=== PATIENT | female | born 1935 | race Caucasian/White ===

== ENCOUNTER → 2017-02-08 | Outpatient (CLI) | payer MEDICARE, OTHER ==
[~2017-02-08] MED LIST: ACET-2723 PO; ALBU8.5H INH; ALPR-240 PO; ASCO-324 PO; BUME2TAB2 PO; FISH1CAP29 PO; LACT1CAP80 PO; POLY30DR BOTH EYES; POTA10TA83 PO; SERT50TA12 PO; VERA180T6 PO; VERA180T8 PO; WARF3TAB24 PO; WARF3TAB6 PO; [UNRECOGNIZED DRUG - CODE] PO
--- NOTE | 2017-02-08 11:27 | DI ---
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 FINDINGS: The heart size is normal. The mediastinal configuration is unremarkable. Right-sided dual-lead pacemaker in stable position. There are no consolidating opacities. There is stable blunting of the right costophrenic angle likely reflecting pleural thickening/scarring. There is no evidence for a pneumothorax. The osseous structures are within normal limits. IMPRESSION: Stable chest without evidence for acute cardiopulmonary abnormality. .
== END ==
LOC: IMA 11:00
PROVIDERS: ATTEND Internal Medicine Medical Oncology
DX: C50.311 Malignant neoplasm of lower-inner quadrant of right female breast (principal); Z95.0 Presence of cardiac pacemaker

== ENCOUNTER → 2017-02-10 | Outpatient (CLI) | payer MEDICARE, OTHER | LOC: WC.BC 08:35 | DX: Z12.31 Encounter for screening mammogram for malignant neoplasm of breast (principal); C50.912 Malignant neoplasm of unspecified site of left female breast; N64.59 Other signs and symptoms in breast; N64.89 Other specified disorders of breast | CPT/HCPCS: 77063; G0202 ==

== ENCOUNTER 2017-02-18 06:15 | Day surgery (SDC) | payer MEDICARE, OTHER ==
[~2017-02-18] VITALS: Ht 167.6 cm; Wt 60.7 kg
[~2017-02-18 06:15] MED LIST changes: -ACET-2723 PO; +ALBU18HF2 ORAL INH; -ALBU8.5H INH; +BUDE3CAP4 PO; -LACT1CAP80 PO; +RANI150T7 PO
--- OUTSIDE RECORDS SUMMARY | 2017-02-18 06:18 | XMS REPORT | Referral Summary ---
Author Author [facility] Organization [facility] Address Unknown Phone Unavailable Care Team Providers Care [employer] Name Role Phone Ion Bergeron Primary Care Physician [phone] Encounter [facility] [id number] Date(s): 01/12/16 - 01/12/16 [facility] [address] [place] [address] GITA Ramirez [id number] [facility] Discharge Diagnosis: Eustachian tube dysfunction Discharge Diagnosis: Bilateral sensorineural hearing loss Discharge Disposition: 01-Home or Self Care Attending Physician: Carmen Prince Admitting Physician: Carmen Prince Vital Signs No data available for this section Problem List No data available for this section Allergies, Adverse Reactions, Alerts Substance Reaction Severity Status nitrofurantoin STOMACHACHE Active tetracycline uNspecfied Active Medications No data available for this section Results No data available for this section Immunizations No data available for this section Procedures No data available for this section Social History No data available for this section Assessment and Plan No data available for this section
--- OUTSIDE RECORDS SUMMARY | 2017-02-18 06:18 | XMS REPORT | Continuity of Care Document ---
Author Author [facility] Organization [facility] Address Unknown Phone Unavailable Care Team Providers Care [employer] Firer Name Role Phone Primary Care Physician Unavailable Source Comments Some departments are not documenting in the electronic medical record. If you do not see the information that you expected, contact Release of Information in the Health Information Management department at [phone] for further assistance in locating additional records.[facility] Active Allergies and Adverse Reactions Not on File Current Medications Not on file Active Problems Not on file Social History Tobacco Use Types Packs/Day Years Used Date Never Assessed Plan of Care Health Maintenance Due Date Last Done Comments Physical (Comprehensive) 1940 Exam Pertussis Vaccine 1944 Tetanus Vaccine 1950 Shingles Vaccine 1993 Osteoporosis Screening 1998 Prevnar/Pneumovax (#1) 1998 Influenza Vaccine 06/03/2017 Results from Last 3 Months Not on file
--- OUTSIDE RECORDS SUMMARY | 2017-02-18 06:18 | XMS REPORT | Continuity of Care Document ---
Author Author [facility] Organization [facility] Address Unknown Phone Unavailable Allergies Active Description Code Type Severity Reaction Onset Reported/Identified Relationship to Patient Clinical Status Yes No Known Food Allergies Food Allergy 08/29/2012 Yes Macrobid Drug Allergy uNspecfied 08/30/2012 Yes Tetracycline Drug Allergy uNspecfied 08/30/2012 Medications Problems Date Dx Coded Attending Type Code Diagnosis Diagnosed By 08/29/2012 Noé Geronimo MD Final 272.0 PURE HYPERCHOLESTEROLEM 08/29/2012 Noé Geronimo MD Final 397.0 TRICUSPID VALVE DISEASE 08/29/2012 Noé Geronimo MD Final 401.9 HYPERTENSION NOS 08/29/2012 Noé Geronimo MD Final 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 Visit Date/Time Discharge Status Pt. Type Provider Facility Loc./Unit Complaint [id number] 08/29/2012 23:15:00 2011 10:45:00 DIS Inpatient Noé Geronimo MD [facility] on [address]
[2017-02-18 06:25] VITALS: Ht 167.6 cm; Wt 60.7 kg
[2017-02-18 06:33] VITALS: BP 127/65; PULSE 79; RESP 16; TEMP 97.9; O2SAT 97
[2017-02-18] MEDS ORDERED: LR 1,000 ML IV SCH (07:00)
[2017-02-18] MEDS ORDERED: LIDOCAINE 1% (10mg/ml) 2ml SDV INJ ONE (07:00)
[2017-02-18] MEDS ORDERED: PROPOFOL 500mg 50 ML IV ONE (07:10)
--- NOTE | 2017-02-18 07:29 | ANESPREOP ---
Anesthesia Record Date and Time DATE: 02/18/17 TIME: 07:27 Pre-Op Diagnosis colitis personal history cancer Proposed Surgical Procedure COLONOSCOPY Allergies: Coded Allergies: nitrofurantoin (Verified Adverse Reaction, Mild, STOMACH ACHE, 02/18/17) tetracycline (Verified Adverse Reaction, Mild, STOMACH ACHE, 02/18/17) ibuprofen (Verified Adverse Reaction, Unknown, AVOID-ON COUMADIN, 02/18/17) Ht/Wt/BMI Height: 5 ' 6.00 " Weight: 60.700 kg BMI: 21.6 kg/m2 Vital Signs Date Time Temp Pulse Resp B/P Pulse Ox O2 Delivery O2 Flow Rate FiO2 02/18/17 06:33 97.9 79 16 127/65 97 Room Air Medications Inpatient Medications Current Medications Medications (Trade) Dose Ordered Sig/Brent Start Time Stop Time Status Last Admin Dose Admin Lactated Ringer's (Lactated Ringers) 1,000 ml @ 50 mls/hr Q20H 02/18/17 07:00 02/18/17 06:51 50 MLS/HR Albuterol Sulfate (Ventolin HFA 90 mcg/actuation) 18 Gm Hfa.aer.ad, 2 PUFF ORAL INH Q4H PRN for SHORTNESS OF AIR/WHEEZING, (Reported) Last Taken: on 02/18/17 0600 Alprazolam (Alprazolam) 0.25 Mg Tablet, 0.5 TAB PO HS, (Reported) Last Taken: on 02/17/17 2130 Ascorbate Calcium (Vitamin C) 500 Mg Tablet, 1 TAB PO DAILY, (Reported) Last Taken: on 02/16/17 0800 Budesonide (Budesonide EC) 3 Mg Capdr...er, 1 CAP PO DAILY PRN for PRN ORDERS, (Reported) Last Taken: on 02/16/17 0800 Bumetanide (Bumex) 2 Mg Tablet, 1 TAB PO DAILY, (Reported) Last Taken: on 02/17/17 0800 Fish Oil/[place]-3 Fatty Acids (Fish Oil 1,000 Mg Capsule) 1 Cap Capsule, 1 CAP PO BID, (Reported) Last Taken: on 02/15/17 0800 Multivitamin (One-A-Day Essential) Unknown Strength Tablet, 1 TAB PO DAILY, (Reported) Last Taken: on 02/15/17 0800 Polyvinyl Alcohol/Povidone/Pf (Refresh Classic Eye Drops) 1 Each Droperette, 1 DROP BOTH EYES DAILY, (Reported) Last Taken: on 02/17/17 08 Potassium Chloride (Potassium Chloride) 10 Meq Tab.prt.sr, 1 TAB PO Q2D, (Reported) Last Taken: on 02/17/17 08 Ranitidine HCl (Ranitidine HCl) 150 Mg Tablet, 1 TAB PO DAILY, (Reported) Last Taken: on 02/18/17 06 Sertraline (Sertraline) 50 Mg Tablet, 0.5 TAB PO DAILY, (Reported) Last Taken: on 02/17/17 08 Verapamil HCl (Verapamil ER) 180 Mg Tablet.sa, 0.5 TAB PO PM, (Reported) Last Taken: on 02/17/172129 Verapamil Hcl (Verapamil Hcl) 180 Mg Tablet.er , 1 TAB PO AM, (Reported) Last Taken: on 02/18/17 06 Warfarin Sodium (Coumadin) 3 Mg Tablet, 1.5 TAB PO 4XW, (Reported) MON,TUE,TIMOTHY,SAT Last Taken: on 02/12/17 0800 Warfarin Sodium (Warfarin Sodium) 3 Mg Tablet, 1 TAB PO 3XW, (Reported) TUE,TUE,TUE Last Taken: on 02/11/17 0800 Currently on Beta Brit: No Medical/Surgical History Anesthesia PMH: Reports: *Dyspnea (ON EXERTION), *Hypertension, Arthritis, Asthma (MILD), Cancer (BREAST), Cardiac Arrythmia (a-fib), Pacemaker, Pneumonia , Reflux, Denies: *Angina, *Diabetes, *CT, Anesthesia Reactions (NO AIRWAY ISSUES), Blood Transfusion Reac, CHF, COPD, CVA/Stroke/TIA, Clotting Problems, Deep Vein Thrombosis, Glaucoma, Malignant Hyperthermia, Renal Disease, Rheumatic Fever, Seizures, Sleep Apnea, Thyroid Disease, Tuberculosis Smoking Status: Never smoker Has pt. smoked today?: No Use Chewing Tobacco?: No Second Hand Exposure: No Substance Use Type: does not use Alcohol Intake: none HX of Last Menstrual Period: AGE 48 Past Surgical History Orthopedic Surgeries: Yes - R HIP Abdominal Surgeries: Yes - GALLBLADDER Genitourinary Surgeries: Cardiac Surgeries: Yes - PACEMAKER Endocrine Surgeries: Reproductive Surgeries: Yes - HYSTERECTOMY Neurological Surgeries: No Ear Surgeries: No Nose Surgeries: No Throat Surgeries: - T&A Other Surgeries: Yes - CHEST DRAIN Anesthesia Adverse Reactions: FOUND none Family Hx of Anesthesia Advers: none Hx of Motion Sickness: No Pertinent Findings EKG Rhythm: Sinus Rhythm Physical Exam Respiratory: Lungs clear Cardiovascular: FOUND Regular rate, rhythm (v pacer) Airway Assessment Mallampati Score: I TMD: 3 Fingerbreadths Neck Extension: Good Teeth: Chipped Teeth/Crowns Overall Assessment: No Airway Concerns ASA: 3 Plan Anesthesia Plan: TIVA Discussion Discussed risks/options/alternatives of anesthesia and questions answered. Patient consents. Nursing pain assessment noted. Present: Spouse Attestation Statement Prior to the delivery of any anesthetic medication, I examined the patient, developed the plan, obtained the patient's consent and discussed the risk and benefits of the procedure with the patient/guardian. CUCO GARZA I PHARMACY OPERATIONS COORDINATOR February 18, 2017 07:29
[2017-02-18 08:14] VITALS: BP 105/54; PULSE 69; RESP 18; TEMP 97.9; O2SAT 6; O2SAT 96
[2017-02-18 08:29] VITALS: BP_SYST 101; BP_SYST 97; BP_DIAS 52; BP_DIAS 54; PULSE 73; RESP 14; O2SAT 98
[2017-02-18 08:44] VITALS: BP 108/54; PULSE 72; RESP 18; TEMP 97; O2SAT 98
--- NOTE | 2017-02-18 09:14 | ANESPO ---
Post-Op Note Date 02/18/17 Time: 08:42 Status Pt Participated in Evaluation: Pt participated by phone Vital Signs Date Time Temp Pulse Resp B/P Pulse Ox O2 Delivery O2 Flow Rate FiO2 02/18/17 08:44 97.0 72 18 108/54 98 Room Air Respiratory Function: Airway patent, Regular respirations Cardiovascular Function: Regular pulse (paced) Mental Status: Alert/oriented Pain Level Intensity: 0 Hydration: Taking po fluids Complications during Recovery None apparent Follow-Up Instructions Instructions Per Surgeon CUCO GARZA CRNA February 18, 2017 09:14
--- NOTE | 2017-02-18 10:13 | OPNOTEF ---
[facility] DATE: 02/18/2017 PREOPERATIVE DIAGNOSIS: History of colitis. POSTOPERATIVE DIAGNOSIS: History of colitis. PROCEDURE: Colonoscopy with biopsy at 35 cm. SURGEON: Bernardo Bergeron MD ANESTHESIA: TIVA PROCEDURE NOTE: The patient was prepped with Colyte the evening prior to the procedure. She was placed in the left lateral position. After a benign digital rectal exam, the colonoscope was inserted and advanced to the cecum with cecal landmarks identified. The cecum, ascending colon, transverse colon and sigmoid showed no evidence of hemorrhage, mass lesions, ulcerations or polyps. She did have a mild edematous granular appearance throughout the colon. This was very mild with no evidence of hemorrhage or ulcerations. Biopsy was taken at 35 cm for pathology. The rectum and anus were clear. The colon was suctioned and the scope removed with the patient tolerating the procedure well. FINAL DIAGNOSIS Very mild pancolitis with slightly erythematous and granular-appearing mucosa. MTDD
== END 2017-02-18 08:49 | disposition home or self-care (01) ==
LOC: NSC 06:15
DX: K51.90 Ulcerative colitis, unspecified, without complications (principal); F41.9 Anxiety disorder, unspecified; Z85.3 Personal history of malignant neoplasm of breast; K58.9 Irritable bowel syndrome, unspecified; I48.0 Paroxysmal atrial fibrillation; I50.9 Heart failure, unspecified; I87.8 Other specified disorders of veins; J45.909 Unspecified asthma, uncomplicated; E78.1 Pure hyperglyceridemia; Z79.01 Long term (current) use of anticoagulants; Z79.899 Other long term (current) drug therapy
CPT/HCPCS: 45380; 88305; J7120